=== PATIENT | female | born 1970 | race American Indian/Alaskan Native ===

== ENCOUNTER 2017-11-08 09:15 | Outpatient (CLI) | payer OTHER ==
--- NOTE | 2017-11-08 14:40 | Mammography Report ---
BILATERAL DIGITAL SCREENING MAMMOGRAM with CAD: 11/08/17 09:15:00 CLINICAL: Baseline screening. COMPARISON:None. FINDINGS: The breasts are mostly fatty. An oval circumscribed 4.4 cm left breast mass requires additional imaging.No architectural distortion or suspicious calcifications.The right breast is negative. IMPRESSION: Left breast mass requiring further workup. BI-RADS CATEGORY: 0 -- Additional Imaging Evaluation Required RECOMMENDATION: Recalled for ultrasound of the upper-outer left breast. ACR BI-RADS MAMMOGRAPHIC CODES: 0 = Needs additional imaging evaluation; 1 = Negative; 2 = Benign; 3 = Probably benign; 4 = Suspicious; 5 = Malignant; 6 = Known biopsy-proven malignancy COMMENT: 1. Dense breast tissue, i.e., adenosis, fibrocystic changes, etc., may obscure an underlying neoplasm. 2. Approximately 10% of cancers are not detected with mammography. 3. A negative mammography report should not delay biopsy if a clinically suspicious mass is present. COMMENT: Patient follow-up letters are generated via our [employer] application.
== END 2017-11-08 09:16 | disposition home or self-care (01) ==
LOC: SPVWC 09:15
PROVIDERS: ATTEND Advanced Practice Midwife
DX: Z12.31 Encounter for screening mammogram for malignant neoplasm of breast (principal)
CPT/HCPCS: 77067

== ENCOUNTER 2017-12-30 13:11 | Outpatient (CLI) | payer OTHER ==
--- NOTE | 2017-12-30 15:33 | Ultrasound Report ---
LEFT BREAST ULTRASOUND: 12/30/17 13:11:00 CLINICAL: Left breast on screening mammogram. COMPARISON: 11/08/17 FINDINGS: Ultrasound of the left breast was performed and demonstrated an oval solid heterogeneous slightly hypoechoic mass at 2 o'clock 4 cm from the nipple. It is relatively smooth and has a capsule or pseudocapsule and measures 3.2 x 3.2 x 1.4 cm. IMPRESSION: A solid 3.2 cm left breast mass at 2 o'clock 4 cm from the nipple. Recommend ultrasound guided needle core biopsy of the left breast to confirm benignity. BI-RADS 4A--Mildly Suspicious I discussed the findings and the recommendation for needle core biopsy with the patient at the time of the examination.
== END 2017-12-30 13:12 | disposition home or self-care (01) ==
LOC: SPVWC 13:11
PROVIDERS: ATTEND Advanced Practice Midwife
DX: N63.22 Unspecified lump in the left breast, upper inner quadrant (principal)

== ENCOUNTER 2018-11-26 11:34 | Outpatient (CLI) | payer OTHER ==
--- NOTE | 2018-11-26 14:47 | Mammography Report ---
BILATERAL DIGITAL SCREENING MAMMOGRAM with CAD : 11/26/18 11:34:00 CLINICAL: Routine screening.Status post ultrasound guided needle biopsy of a left breast mass at 2 o'clock 4 cm from the nipple on 03/28/18. Pathology: Nonspecific benign fibrous tissue with focal chronic inflammation. COMPARISON:03/28/18 FINDINGS: There are bilateral scattered fibroglandular densities.The previously described oval circumscribed left breast mass at 2 o'clock measures 3.7 x 3.6 x 2.3 cm compared to 4.0 x 2.9 x 4.4 cm on the last exam. A biopsy clip is identified within the mass but it is otherwise unchanged in appearance. No other mass, architectural distortion or suspicious calcifications. IMPRESSION: No mammographic evidence of malignancy. Benign left breast mass. BI-RADS CATEGORY: 2 -- Benign RECOMMENDATION: Routine mammographic screening in one year. COMMENT: Patient follow-up letters are generated by our [employer] application.
== END 2018-11-26 11:35 | disposition home or self-care (01) ==
LOC: SPVWC 11:34
PROVIDERS: ATTEND Advanced Practice Midwife
DX: Z12.31 Encounter for screening mammogram for malignant neoplasm of breast (principal)
CPT/HCPCS: 77067

== ENCOUNTER 2019-03-17 06:58 | Day surgery (SDC) | payer OTHER ==
[2019-03-17] MEDS ORDERED: NACL 0.9% 1000 ML 1,000 ML IV SCH (07:00)
[2019-03-17] MEDS ORDERED: DIPRIVAN 10 MG/ML IV ONE ×3 (07:22→14:23)
--- NOTE | 2019-03-17 09:25 | Anesthesia Day of Surgery ---
Anesthesia Day of Surgery - Day of Surgery Patient Examined: Yes Patient H&P Reviewed: Yes Patient is NPO: Yes
--- NOTE | 2019-03-17 09:28 | Anesthesia Consultation ---
Anesthesia Consult and Med Hx Date of service: 03/17/19 - Airway Anesthetic Teeth Evaluation: Caps ROM Head & Neck: Adequate Mental/Hyoid Distance: Adequate Mallampati Class: Class II Intubation Access Assessment: Good - Pre-Operative Health Status ASA Pre-Surgery Classification: ASA1 Proposed Anesthetic Plan: MAC
[2019-03-17] MEDS ORDERED: XYLOCAINE 2% UROJET ONE (10:18)
[2019-03-17] MEDS ORDERED: XYLOCAINE 2% UROJET UR ONE (10:20)
--- NOTE | 2019-03-17 10:32 | Short Stay Summary ---
Short Stay Documentation Date of service: 03/17/19 Narrative H&P: The patient presents for screening colonoscopy, no prior studies. She also requested possible banding for symptomatic internal hemorrhoids. - History Past Medical History: other (hemorrhoids) Past Surgical History: No surgical history Social history: no significant social history - Allergies and Medications Current Medications: Allergies No Known Allergies Allergy (Verified 03/16/19 16:57) Home Medications Medication Instructions Recorded Confirmed Last Taken Type Simvastatin 20 mg PO DAILY 03/17/19 03/17/19 03/12/19 History Terbinafine 250 mg PO DAILY 03/17/19 03/17/19 03/12/19 History Active Medications Sodium Chloride (Nacl 0.9% 1000 Ml) 1,000 mls @ 50 mls/hr IV DIRECT ALEJANDRO Last Admin: 03/17/19 08:54 Dose: 50 mls/hr Documented by: - Physical exam General appearance: no acute distress, well-nourished Integumentary: no rash, no growths, no abnormal pigmentation HEENT: Atraumatic, PERRLA, EOMI, Mucous membr. moist/pink Lungs: Clear to auscultation, Normal air movement Breasts: deferred Heart: Regular rate, Normal S1, Normal S2, No murmurs Gastrointestinal: normoactive bowel sounds, no tenderness, no distended, no masses, no guarding, no organomegaly Female Genitourinary: deferred Rectal Exam: normal exam-external/orifice, normal rectal tone, no tenderness, no hemorrhoids (No external hemorrhoids) Extremities: no ischemia, pulses intact, pulses symmetrical, No edema, normal temperature, normal color Neurological: Normal gait, Normal speech, Strength at 5/5 X4 ext, Normal tone, Sensation intact, Cranial nerves 3-12 NL - Brief post op/procedure progress note Date of procedure: 03/17/19 Findings: see dictated report Estimated blood loss: none Pathology: none Condition: stable - Disposition Condition at discharge: Poor Disposition: DC-01 TO HOME OR SELFCARE - Discharge Diagnoses (1) Colon cancer screening Status: Acute (2) Internal hemorrhoids Status: Acute Short Stay Discharge Plan Activity: other (no driving for 24 hours) Weight Bearing Status: Weight Bear as Tolerated Diet: regular Follow up with: DWAIN VERAS CNM [Primary Care Provider] - 7 Days
--- NOTE | 2019-03-17 10:35 | Operative Report ---
Operative Report Operative Report: Date of procedure: 03/17/2019 Preprocedure diagnosis: Colon cancer screening, average risk. No prior studies. Symptomatic internal hemorrhoids with pain and possible prolapse.. Post procedure diagnosis: Normal colon except for internal hemorrhoids. Procedure: Colonoscopy to the cecum Endoscopist: Dr. Romano Anesthesia: Monitored anesthesia care per anesthesia department Estimated blood loss: 0 Medications: Monitored anesthesia care. See separate report by anesthesia for details. After careful discussion of the nature and purpose of the procedure as well as details of the technique risks benefits and alternatives the patient gave consent. Please see recent history and physical from the office. The patient was placed in the left lateral decubitus position and medicated per anesthesia. A rectal exam was performed sphincter tone was normal there were no masses palpable. The Olympus colonoscope was passed transanally and advanced under continuous direct vision without difficulty to the cecum. The colon was well prepared. The cecum was normal. The ascending colon was normal and on forward and retroflexed views. The transverse colon, descending colon, and sigmoid colon were normal. The rectum revealed 2+ internal hemorrhoids with 2 columns being prominent. Rectum otherwise was normal on forward and retroflexed views. The regular scope was withdrawn followed by inserting the Olympus upper videoscope loaded with the banding device. 4 bands were placed in a semicircumferential arc on the internal hemorrhoids visible. No bleeding was encountered. The procedure was well-tolerated overall and the patient was observed in recovery. Conclusions: 2+ internal hemorrhoids. Status post banding. Normal colonoscopy otherwise to the cecum. Plan: Repeat colonoscopy in 10 years, sooner if clinically indicated. Signed electronically: Sachin Romano M.D.
--- NOTE | 2019-03-17 10:38 | Post Anesthesia Evaluation ---
- Post Anesthesia Evaluation Patient Participated: Yes Airway Patent: Yes Stable Respiratory Function: Yes Nausea/Vomiting: No Temp > 96.8F: Yes Pain Manageable: Yes Adequeate Hydration: Yes Anesthesia Complications: No Block Receding Appropriately: Not Applicable Patient on Ventilator: No
[2019-03-17 11:12] VITALS: BP 118/76
[2019-03-17] MEDS ORDERED: XYLOCAINE MPF 2% ONE (14:00)
== END 2019-03-17 06:59 | disposition home or self-care (01) ==
LOC: GIO 06:58
PROVIDERS: ATTEND Internal Medicine Gastroenterology
DX: Z12.11 Encounter for screening for malignant neoplasm of colon (principal); K64.8 Other hemorrhoids; E78.00 Pure hypercholesterolemia, unspecified; Z79.899 Other long term (current) drug therapy
CPT/HCPCS: 45378; 46221; J2704; J7030

== ENCOUNTER 2021-03-20 09:53 | Outpatient (CLI) | payer BC ==
[2021-03-20 10:36] LABS: Hematocrit 39.4 % (30.3-42.9); Hemoglobin 13.5 gm/dl (10.1-14.3); Mean Corpuscular HGB Conc 34 % (30-34); Mean Corpuscular Volume 91 fl (79-97); Platelet Count 216 K/mm3 (140-440); Red Blood Count 4.31 M/mm3 (3.65-5.03)
[2021-03-20 10:46] LABS: Alanine Aminotransferase 14 units/L (7-56); Albumin 4.8 g/dL (3.9-5); BUN/Creatinine Ratio 15; Blood Urea Nitrogen 12 mg/dL (7-17); Chol/HDL Ratio 2.71 %; HDL Cholesterol 71 mg/dL (40-59); Hemolysis Index 4; LDL Cholesterol,Direct 122 mg/dL (50-130)
[2021-03-20 11:42] LABS: ABG Base Excess -1.4 mmol/L (-2.0-3.0); ABG HCO3 23.7 mmol/L (20.0-26.0); ABG Methemoglobin 0.4 % (0.0-1.5); ABG Oxygen Saturation 97.6 % (95.0-99.0); ABG PCO2 41.1 mm Hg; ABG PH 7.378 pH Units (7.350-7.450); ABG PO2 101.3 mm Hg (80.0-90.0)
--- NOTE | 2021-03-20 13:51 | XRay Report ---
CHEST 2 VIEWS INDICATION / CLINICAL INFORMATION: DYSPNEA,COUGH. COMPARISON: None available. FINDINGS: SUPPORT DEVICES: None. HEART / MEDIASTINUM: No significant abnormality. LUNGS / PLEURA: No significant pulmonary or pleural abnormality. No pneumothorax. ADDITIONAL FINDINGS: No significant additional findings. IMPRESSION: 1. No acute findings. Signer Name: Maninder Lr MD Signed: 03/20/2021 1:47 PM Workstation Name: [id number]
--- NOTE | 2021-03-20 14:09 | Fluoroscopy Report ---
UPPER GI HISTORY: DYSPNEA,COUGH. TECHNIQUE: Single and double contrast barium technique utilized to evaluate the esophagus, stomach, and duodenal C-loop. FINDINGS: Highway Safety [employer] film of the abdomen demonstrates a normal bowel gas pattern. There are approximately 6-7 calcif ications in the right upper quadrant measuring up to 1 cm which probably represent gallstones. To begin the exam, swallowing was evaluated in the lateral position under direct fluoroscopy. Swallo wing was normal. No mucosal irregularity, mass, mass effect, or critical stenosis. There were no abnormal tertiary c ontractions as seen with dysmotility. No hiatal hernia or gastroesophageal reflux. IMPRESSION: Unremarkable upper GI. No mucosal defect, hiatal hernia or evidence for reflux disease. Cholelithiasis. Fluoroscopic time: 2.8 minutes Number of fluoroscopic images: 35 Signer Name: Mario Echols Jr, MD Signed: 03/20/2021 2:04 PM Workstation Name: [id number]
== END 2021-03-20 09:54 | disposition home or self-care (01) ==
LOC: FLUORO 09:53
PROVIDERS: ATTEND Internal Medicine
DX: K80.20 Calculus of gallbladder without cholecystitis without obstruction (principal); R06.00 Dyspnea, unspecified; R06.02 Shortness of breath; E78.00 Pure hypercholesterolemia, unspecified; R05 Cough; K21.9 Gastro-esophageal reflux disease without esophagitis
CPT/HCPCS: 36415; 71046; 74246; 80053; 80061; 82803; 84436; 84443; 85027

== ENCOUNTER 2021-12-13 15:50 | Outpatient (CLI) | payer OTHER | END 2021-12-13 15:51 | disposition home or self-care (01) | LOC: SPVWC 15:50 | PROVIDERS: ATTEND Advanced Practice Midwife | DX: Z12.31 Encounter for screening mammogram for malignant neoplasm of breast (principal) | CPT/HCPCS: 77063; 77067 ==